=== PATIENT | female | born 1995 | race Caucasian/White ===

== ENCOUNTER 2023-09-15 10:03 | Inpatient (IN) | payer BC, SELFPAY ==
[2023-09-15 10:19] VITALS: BP 131/87; PULSE 182; TEMP 37.4
--- NOTE | 2023-09-15 10:19 | ED.C_ITS ---
HPI - Psych General: Chief Complaint: Psychiatric Symptoms Stated Complaint: AILIN HORN Time Seen by Provider: 09/15/23 10:07 Source: patient Mode of arrival: ambulatory History of Present Illness: 27-year-old female who presents to the emergency room for mental health evaluation. She tells me that she is homicidal but she cannot really name any when she wants to hurt. She denies being suicidal. She is extremely anxious she was supposed to be at particular for inpatient rehab its been 4 days since she has done any methamphetamines. Shortly after arrival here she attempted to elope and mated to the CT hallway and went into the orthopedic closet. Patient was escorted back to her room by myself and Av Kim. We tried to de- escalate she continued to be aggravated there was a lot of equipment immediately available within reach in the orthopedic closet so she was physically escorted back to her room to prevent injury to herself or others. complaint: suicidal ideation and feels depressed Duration: intermittent Relieving factors: none Associated psychiatric symptoms: suicidal ideation, homicidal ideation and racing thoughts Treatments prior to arrival: none Review of Systems Const: Denies: fever(s) or chills Card: Denies: chest pain Resp: Denies: dyspnea GI: Denies: abdominal pain : Denies: dysuria, urinary frequency or urinary urgency Musc: Denies: neck pain or back pain Skin/Breast: Denies: rash Physical Exam Const: GENERAL APPEARANCE: cooperative and comfortable ORIENTATION/CONSCIOU SNESS: Yes awake HENMT: COMMON NORMALS: normocephalic, atraumatic and hearing grossly normal bilaterally HEAD & SCALP: normocephalic and atraumatic Resp: COMMON NORMALS: normal respiratory effort, No retractions, No use of accessory muscles and clear to auscultation bilaterally AUSCULTATION: clear to auscultation bilaterally Cardio: COMMON NORMALS: regular rate, regular rhythm and No murmurs present (Cardio) RATE: regular rate RHYTHM: regular rhythm GI: COMMON NORMALS: Soft to palpation and No hepatosplenomegaly present AUSCULTATION: Yes normoactive bowel sounds PALPATION: Yes Soft to palpation, No Tenderness to palpation present (GI), No Guarding due to palpation present (GI) and Yes No hepatosplenomegaly present Extremity: COMMON NORMALS: normal to inspection, capillary refill normal, no clubbing, cyanosis or edema, no calf tenderness and no pedal edema Skin: COMMON NORMALS: no rashes or lesions noted GENERAL SKIN EXAM: no rashes or lesions noted Course Vital Signs: Vital signs: Vital Signs Temperature 99.4 F 09/15/23 10:19 Pulse Rate 136 H 09/15/23 13:00 Respiratory Rate 16 09/15/23 13:00 Blood Pressure 130/86 09/15/23 13:00 Pulse Oximetry 98 09/15/23 13:00 Oxygen Delivery Me thod Room Air 09/15/23 13:00 MDM - Psych Medical Decision Making Mild acute psychosis from her history of methamphetamine use. She is having some delusions and slight paranoid psychosis she is concerned is going to get worse and she is can hurt herself or someone else discussed Dr. Llamas will admit. Orders written Medical Records I reviewed the patient's medical records. Lab Data I reviewed the patient's lab results. 09/15/23 10:42 09/15/23 10:42 Laboratory Results WBC 10.54 10^3/uL (3.29-11.43) 09/15/23 10:42 RBC 5.04 10^6/uL (3.85-5.65) 09/15/23 10:42 Hgb 15.10 g/dL (11.27-16.99) 09/15/23 10:42 Hct 47.6 % (36-47) H 09/15/23 10:42 MCV 94.4 fl (85-98) 09/15/23 10:42 MCH 30.0 pg (27-33) 09/15/23 10:42 MCHC 31.7 g/dL (30-55) 09/15/23 10:42 RDW 12.8 % (12.1-15.1) 09/15/23 10:42 Plt Count 293 10^3/cmm (157-399) 09/15/23 10:42 MPV 10.7 fL (7.4-10.4) H 09/15/23 10:42 Neut % (Auto) 77.5 % 09/15/23 10:42 Lymph % (Auto) 13.2 % 09/15/23 10:42 Wilcox % (Auto) 8.3 % 09/15/23 10:42 Eos % (Auto) 0.2 % 09/15/23 10:42 Baso % (Auto) 0.5 % 09/15/23 10:42 Neut # (Auto) 8.18 10^3/uL (1.8-7.7) H 09/15/23 10:42 Lymph # (Auto) 1.4 10^3/uL (0.8-4.8) 09/15/23 10:42 Wilcox # (Auto) 0.9 10^3/uL (0.2-0.9) 09/15/23 10:42 Eos # (Auto) 0.0 10^3/uL (0.0-0.8) 09/15/23 10:42 Baso # (Auto) 0.1 10^3/uL (0.0-0.1) 09/15/23 10:42 Nucleated RBC % (auto) 0 % 09/15/23 10:42 Nucleated RBCs # 0.0 /100WBC 09/15/23 10:42 Sodium 137 mmol/L (136-145) 09/15/23 10:42 Potassium 4.2 mmol/L (3.5-5.1) 09/15/23 10:42 Chloride 102 mmol/L (98-107) 09/15/23 10:42 Carbon Dioxide 18 mmol/L (22-29) L 09/15/23 10:42 Anion Gap 21.2 (5-19) H 09/15/23 10:42 BUN 10 mg/dL (6-20) 09/15/23 10:42 Creatinine 0.9 mg/dL (0.5-0.9) 09/15/23 10:42 GFR Calculation 74.6 mL/min (90-130) L 09/15/23 10:42 Glucose 127 mg/dL (65-115) H 09/15/23 10:42 Calculated Osmolality 285 mOsm/kg (285-295) 09/15/23 10:42 Calcium 10.1 mg/dL (8.5-10.5) 09/15/23 10:42 Total Bilirubin 1.0 mg/dL (0.15-1.2) 09/15/23 10:42 AST 18 U/L (0-32) 09/15/23 10:42 ALT 21 U/L (0-33) 09/15/23 10:42 Alkaline Phosphatase 98 U/L (35-105) 09/15/23 10:42 Total Protein 8.0 g/dL (6.6-8.7) 09/15/23 10:42 Albumin 4.6 g/dL (3.5-5.2) 09/15/23 10:42 Globulin 3.4 g/dL (1.3-4.6) 09/15/23 10:42 HCG, Qual Negative (Negative) 09/15/23 10:42 Salicylates < 0.3 mg/dL (3-10) L 09/15/23 10:42 Acetaminophen < 5.0 ug/mL (10-30) L 09/15/23 10:42 No radiology studies performed this visit Discharge Plan Discharge Patient Disposition: Admitted As Inpatient Admit Provider: Deric Parada Clinical Impression: Acute psychosis, Drug-induced psychotic disorder, Homicidal ideations Condition: Stable Coding Level of Care Code ED Water Hauler for Chrissy Dang
[2023-09-15] MEDS: LORazepam 2 mg Tablet PO ×2 (10:30→20:16)
[2023-09-15 10:49] LABS: Basophils # 0.1 10^3/uL (0.0-0.1); Basophils % 0.5 %; Eosinophils % 0.2 %; Hematocrit 47.6 % (36-47); Lymphocytes # 1.4 10^3/uL (0.8-4.8); Lymphocytes % 13.2 %; Mean Corpuscular HGB Conc 31.7 g/dL (30-55); Mean Corpuscular Volume 94.4 fl (85-98); Mean Platelet Volume 10.7 fL (7.4-10.4); Monocytes # 0.9 10^3/uL (0.2-0.9); Monocytes % 8.3 %; Neutrophils # 8.18 10^3/uL (1.8-7.7); Neutrophils % 77.5 %; Nucleated Red Blood Cells % 0 %; Platelet Count 293 10^3/cmm (157-399); Red Blood Count 5.04 10^6/uL (3.85-5.65); Red Cell Distribution Width 12.8 % (12.1-15.1); White Blood Count 10.54 10^3/uL (3.29-11.43)
[2023-09-15 11:04] LABS: HCG, Serum Qual Negative (Negative)
[2023-09-15 11:07] LABS: Alanine Aminotransferase 21 U/L (0-33); Albumin Level 4.6 g/dL (3.5-5.2); Alkaline Phosphatase 98 U/L (35-105); Anion Gap 21.2 (5-19); Aspartate Amino Transferase 18 U/L (0-32); Blood Urea Nitrogen 10 mg/dL (6-20); Calcium 10.1 mg/dL (8.5-10.5); Carbon Dioxide 18 mmol/L (22-29); Chloride 102 mmol/L (98-107); Globulin 3.4 g/dL (1.3-4.6); Glomerular Filtration Rate 74.6 mL/min (90-130); Glucose 127 mg/dL (65-115); Osmolality Calculated 285 mOsm/kg (285-295); Potassium 4.2 mmol/L (3.5-5.1); Sodium 137 mmol/L (136-145)
[2023-09-15 11:11] LABS: Acetaminophen < 5.0 ug/mL (10-30); Salicylate < 0.3 mg/dL (3-10)
[2023-09-15 12:50] VITALS: BP 130/86; PULSE 136; RESP 16; O2SAT 97
[2023-09-15 13:00] VITALS: BP 130/86; PULSE 136; RESP 16; O2SAT 98
--- NOTE | 2023-09-15 13:33 | PC.NURSE ---
updated NPU to please notify Haylee Ayala at [facility] if patient leaves NPU
[2023-09-15 14:00] VITALS: BP 118/72; PULSE 82; RESP 18; TEMP 36.8; O2SAT 97
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
[2023-09-15] MEDS: haloperidol 5 mg Tablet PO (20:16)
--- NOTE | 2023-09-15 20:28 | PC.NURSE ---
Patient has reportedly asked for her clothing and to leave the facility. Patient stating that her boyfriend has been outside for 2 hours waiting on her. It has bee explained to patient by multiple staff that she needs to speak with the Doctor in the morning about being discharged. Patient stated that she was only here to get through her anxiety attack and get medication and she is better now. Patient continued to check doors and go into other patients rooms. Patient has attempted to open the windows in both her room and the day room and attempted to have another patient break the glass.Patient has been redirected multiple times by multiple staff members. Patient continuously going into her room and closing the door. This tech has had to open the patients door and explain that the door needs to remain open. Patient proceeded to state that she is 27 years old and that she has a right to her own privacy. This tech explained to patient again that she was in the stress unit and that the doors needed to remain open. Patient proceeded to escalate and hollering that she needs to leave and that her boyfriend is the only one that can calm her down. Patient then stated You dont want to make me snap and came towards this tech in a threatening and violent manner. Patient then stated You need to let me out or I am going to start killing people in here At this time security and the warehouse distribution specialist was called. Patient was given Haldol and Ativan PO. Patient continues to hover by the exit doors.
[2023-09-15 20:49] VITALS: BP 116/88; PULSE 121; RESP 18; TEMP 36.8; O2SAT 97
[2023-09-15 21:05] LABS: Amphetamines Screen Urine Positive (Negative); Barbiturates Screen Urine Negative (Negative); Benzodiazepines Screen Urine Positive (Negative); Cocaine Screen Urine Negative (Negative); Opiate Screen Urine Negative (Negative); PCP Screen Urine Negative (Negative); THC Screen Urine Negative (Negative)
--- NOTE | 2023-09-15 21:42 | PC.NURSE ---
PT CONTINUES TO ESCALATE DUE TO WANTING TO LEAVE FACILTY. PT WAS EDUCATED SHE WOULD NEED TO SEE THE DR. PT HAS BEEN OBSERVED GOING INTO OTHERS ROOMS, TRYING TO POP THE LOCK ON THE DOORS WITH PENS. PEN REMOVED FROM PT. PT IS DELUSIONAL. STATES HER BOYFRIEND HAS BEEN HERE WAITING FOR HER FOR 3 DAYS BUT PT HAS ONLY BEEN HERE A FEW HOURS. PT WILL NOT COMPLETE ASSESSMENTS, ONLY DEMANDS HER CLOTHING SO SHE CAN GO. PT STATES I'M LOOKING FOR A LITTLE BOY, DON'T YOU SEE HIM. PT WAS REDIRECTED MULTIPLE TIMES. PT BECAME EXTREMELY AGITATED YELLING AT STAFF, STATING I AM GOING TO KILL YOU ALL, LET ME GO. PT WAS NOT ABLE TO BE REDIRECTED BY STAFF. MEDICATIONS OFFERED AND REFUSED. PT CONTINUED GOING INTO ROOM AND TRYING TO OPEN DOORS. AT 1999, AND SECURITY WAS CALLED FOR STANDBY ALONG WITH SENIOR TECHNICAL SUPPORT ENGINEER TO ADMINISTER INJECTIONS. ONCE THEY ARRIVED PT SAID SHE WAS CALM AND DID NOT WANT TO TAKE A SHOT. SHE DID AGREE TO TAKE ATIVAN 2 MG AND HALDOL 5 MG PO. RN MADE SURE PT TOOK MEDICATIONS APPEARED PT DID. NEW ORDERS WERE RECEIVED FOR ATIVAN 2 MG PO Q 4 HOURS PRN AGITATION AND BENADRYL 50 MG PO Q 4 AGITATION. PT DID NOT TAKE THE BENADRYL THAT WAS OFFERED. AT 2129 PT CONTINUES TO CHECK DOORS, GO INTO ROOMS, CHARGE AT DOORS AND NOT ABLE TO BE REDIRECTED. PT REQUIRES CONSTANT SUPERVISON BY STAFF. DR. GREY WAS NOTIFIED NEW ORDERS RECEIVED FOR ONE ON ONE SITTER TO ENSURE PT SAFETY. ORDERS PLACED. PT CURRENTLY SITTING ON BENCH STARRING AT STAFF. SUPPORT WAS VOICED.
[2023-09-15] MEDS: OLANZapine 5 mg ODT PO (22:10)
--- NOTE | 2023-09-15 22:23 | PC.NURSE ---
DR. GREY CONTACTED ABOUT PTS ONGOING BEHAVIORS. NEW ORDERS RECEIVED GIVE GEODON 20 MG IM NOW IF PT DECLINES ZYDIS 5 MG PRN FOR AGITATION. PT WAS APPROACHED AFTER TRYING TO OPEN THE DOOR TO THE COURT YARD AGAIN AND PT WAS GIVEN THE CHOICE TO TAKE GEODON 20 MG IM, OR ZYDIS 5 MG ORDERED. PT AGREED TO TAKE ZYDIS 5 MG, THIS RN STAYED WITH PT UNTIL PILL DISSOLVED IN MOUTH. PT DID ATTEMPT TO TAKE IT OUT THEN REQUESTED A DRINK. PT WAS EDUCATED THE ZYDIS NEEDED TO STAY IN HER MOUTH FOR 2-3 MINUTES UNTIL DISSOLVED THEN PT COULD HAVE A DRINK. PT COMPLIED, DECLINED ICE WATER AND WENT TO THE FAUCET AND DRANK OUT OF IT. SUPPORT VOICED.
[2023-09-16] MEDS: ziprasidone 20 mg/mL SDV IM (00:45)
--- NOTE | 2023-09-16 01:15 | PC.NURSE ---
PT CONTINUES TO REST WITH SITTER AT SIDE. VITAL SIGNS OBTAINED AND ARE FOLLOWS. BP 89/54, RR 18, TEMP 98.4, HR 104 AND 98%ON RA. NO DISTRESS NOTED AT THIS TIME.
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
--- NOTE | 2023-09-16 03:17 | PC.NURSE ---
HEALTH CARE TECHNICIAN AND RN INTO ROOM TO COMPLETE SET OF VITALS. PT WOKE UP AND REFUSED TO HAVE HER VITALS TAKEN. RN ATTEMPTED TO EDUCATED PT THAT HER PREVIOUS BLOOD PRESSURE WAS A LITTLE LOW AND WE NEEDED TO RETAKE HER VITAL SIGNS. PT BEGAN TO GET AGITATED AND CONTINUED TO DECLINE. HEALTH CARE TECHNICIAN COVERED UP PT DUE TO PT STATING SHE WAS COLD AND RN AND HEALTH CARE TECHNICIAN LEFT ROOM. SITTER REMAINS AT BED SIDE ORDERED. WILL ATTEMPT TO TAKE VITALS AGAIN PRIOR TO SHIFT CHANGE THIS AM.
[2023-09-16 06:00] VITALS: RESP 18
--- NOTE | 2023-09-16 06:48 | PC.NURSE ---
ORDERS RECEIVED TO DISCONTINUE ONE ON ONE SITTER. PT CONTINUES TO SLEEP. RESPIRATIONS EVEN AND UNLABORED AT 18 BPM. STAFF ATTEMPTED TO DO 600 AM VITALS, PT PULLS ARMS AWAY SAYING NO, I'M SLEEPING, RESEARCH AND EVALUATION MANAGER INFORMED TO LET HER SLEEP AND RN WILL PASS ON IN REPORT TO RETAKE VITALS SOON PT ALLOWS. ORDERS PLACED FOR SITTER TO BE REMOVE.
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
--- NOTE | 2023-09-16 11:26 | PC.OT ---
MULTIPLE ATTEMPTS MADE FOR OT EVALUATION 09/16/2023; WILL ATTEMPT AT LATER DATE.
[2023-09-16 14:00] VITALS: RESP 16
[2023-09-17 06:00] VITALS: RESP 16
[2023-09-17 14:00] VITALS: BP 106/70; PULSE 107; RESP 17; TEMP 37; O2SAT 96
--- NOTE | 2023-09-17 14:41 | W.PM.NPUPNS ---
Subjective NPU Subjective: 27-year-old white female with methamphetamine dependence admitted with bizarre behavior and complaints of auditory hallucinations. Patient had endorsed a past history of germán. She had reported confusion and reported that she did not have much recollection as to how she had come to be in the hospital. She had reported some improved sleep. She had stated that she had been on Wellbutrin for her depression but acknowledged a past history of having some mood swings. She had stated that she had some particular legal troubles but was living in [place] before. She reports that she needed to complete her drug treatment and [facility] otherwise she would go to long-term. Mental Status Exam MSE Comments: She is a thin white female who appeared her stated age who was lying in bed with poor hygiene and appeared in moderate distress. Her speech was monotone in quality and normal in volume with continue speech latency. She was unable to describe her mood. Her affect was odd and bizarre. She clearly appeared to be responding to internal stimuli. She had denied any homicidal ideation or suicidal ideation. Her attention span was impaired. She was alert and oriented to person, year but not place. Her insight is impaired. Her judgment is poor. Her impulse control appeared impaired. Vitals/I&O/Wt Last Vital Signs Temp 98.3 F 09/15/23 20:49 Pulse 121 H 09/15/23 20:49 Resp 16 09/17/23 06:00 BP 116/88 09/15/23 20:49 Pulse Ox 97 09/15/23 20:49 O2 Del Method Room Air 09/15/23 20:49 Data NPU 09/15/23 10:42 09/15/23 10:42 A&P Assessment and plan (1) Acute psychosis: (2) Drug-induced psychotic disorder: (3) Homicidal ideations: Plan Is a 27-year-old white female recent use of methamphetamine with likely psychosis secondary to its use. The patient will continue to require inpatient hospitalization as she appears unable to care for herself at this time. 1. Encourage individual, group and milieu therapy. 2. Recommend sober living treatment at the highest level of care to which the patient is willing to commit. 3. Continue q-15 minute checks for safety.? 4.?Continue olanzapine 5mg at night, continue Wellbutrin xl 150mg in am 5.? Will attempt to gather collateral information. Involuntary Hold Information 96 Hour Hold: 96 Hour Involuntary Admission: No Attestations NPU Medical Necessity Statement*: Inpatient hospitalization is medically necessary and deemed to ?be ?the clinically appropriate intervention ?at this time.? We will monitor/initiate medications and make changes as indicated.? The patient will be in the hospital for over 2 midnights.? The patient?s likely length of stay 1-2 days. Coding Level of Care Code Acute Code for [facility] Fwd Diagnoses Acute psychosis F23 Drug-induced psychotic disorder F19.959 Homicidal ideations R45.850
[2023-09-17 20:19] VITALS: BP 102/65; PULSE 76; RESP 16; TEMP 36.6; O2SAT 98
[2023-09-17] MEDS: OLANZapine 5 mg TABLET PO (20:24)
[2023-09-18] MEDS: buPROPion XL (24 HR) 150 mg Tablet PO (08:46)
[2023-09-18 14:00] VITALS: BP 115/76; PULSE 87; RESP 16; TEMP 36.6; O2SAT 99
--- NOTE | 2023-09-18 16:55 | P.NPUPN_ITS ---
Subjective NPU Subjective: 27-year-old white female with methamphetamine dependence admitted with bizarre behavior and complaints of auditory hallucinations. patient had reported feeling better. She had continued to appear distracted by her thoughts. She had eaten and had remained isolative on the milieu. She had met with a staff member at the [facility] today. She continued to struggle with being able to identify or provide information regarding her past 7 to 10 days just prior to her hospitalization here. She had provided information yesterday suggesting that she had been diagnosed with bipolar disorder and when the aligner typewriter of this note had brought that up she appeared surprised that the aligner typewriter had known this information. The patient when asked as to whether she felt ready to go directly to [facility] today she had paused for several seconds and was unable to answer this question and eventually stated that she would need to think about it. Mental Status Exam MSE Comments: She is a thin white female who appeared her stated age who was seen on the [facility] with improved hygiene and steady gait. Her speech was monotone in quality and decrease in volume and significant periods of increased latency. She described her mood as okay. Her affect Appeared odd and subdued. She continued to to be responding to internal stimuli although she denied any auditory or visual hallucinations. She had denied any homicidal ideation or suicidal ideation. Her attention span was impaired. She was alert and oriented to person, place, year and month but not day of the week or date. Her insight is impaired. Her judgment is poor. Her impulse control appeared impaired. Vitals/I&O/Wt Last Vital Signs Temp 97.9 F 09/18/23 14:00 Pulse 87 09/18/23 14:00 Resp 16 09/18/23 14:00 BP 115/76 09/18/23 14:00 Pulse Ox 99 09/18/23 14:00 O2 Del Method Room Air 09/17/23 20:19 Data NPU 09/15/23 10:42 09/15/23 10:42 A&P Assessment and plan (1) Acute psychosis: (2) Drug-induced psychotic disorder: (3) Homicidal ideations: (4) Bipolar disorder, unspecified: Plan Is a 27-year-old white female recent use of methamphetamine with likely psychosis secondary to its use. The patient will continue to require inpatient hospitalization as she appears unable to care for herself at this time. 1. Encourage individual, group and milieu therapy. 2. Recommend sober living treatment at the highest level of care to which the patient is willing to commit. 3. Continue q-15 minute checks for safety.? 4.?Increase olanzapine 7.5mg at night. continue Wellbutrin xl 150mg in am 5.? Will attempt to gather collateral information. Involuntary Hold Information 96 Hour Hold: 96 Hour Involuntary Admission: No Attestations NPU Medical Necessity Statement*: Inpatient hospitalization is medically necessary and deemed to ?be ?the clin ically appropriate intervention ?at this time.? We will monitor/initiate medications and make changes as indicated.?? The patient?s likely length of stay 3-5 days. Coding Level of Care Code Acute Code for [facility] Fwd Diagnoses Acute psychosis F23 Drug-induced psychotic disorder F19.959 Homicidal ideations R45.850 Bipolar disorder, unspecified F31.9
[2023-09-18 20:03] VITALS: BP 119/86; PULSE 95; RESP 17; TEMP 37.1; O2SAT 98
[2023-09-18] MEDS: OLANZapine 5 mg ODT PO (20:12)
[2023-09-18] MEDS: OLANZapine 5 mg TABLET 7.5 MG PO (20:13)
--- NOTE | 2023-09-19 06:38 | PC.NURSE ---
pt ref vs resp18
[2023-09-19] MEDS: buPROPion XL (24 HR) 150 mg Tablet PO (08:15)
--- NOTE | 2023-09-19 12:36 | W.PM.NPUPNS ---
Subjective NPU Subjective: 27-year-old white female with methamphetamine dependence admitted with bizarre behavior and complaints of auditory hallucinations. The patient was isolative on the [facility]. She reported that she did not feel that her thoughts were racing. She states that she had been feeling better. She remains somewhat uncertain about the specifics of what medication she had been on. She had admitted to having used methamphetamine approximately 1 week ago. There was no wandering noted. There was no problems with excess confusion. She was eating well and appeared less distracted by her thoughts. She had stated that she was willing to return to [facility] once stabilized. She reports improved sleep. Mental Status Exam MSE Comments: She is a thin white female who appeared her stated age who was seen on the [facility] with improved hygiene and steady gait. Her speech was monotone in quality and decrease in volume with significant periods of increased latency. She described her mood as okay. Her affect remained flat. She did not appear to be responding to internal stimuli today. She had denied any homicidal ideation or suicidal ideation. Her attention span was better. She was alert and oriented to person, place, and time today. Her insight appeared to be improving. Her judgment is poor. Her impulse control appeared impaired. Vitals/I&O/Wt Last Vital Signs Temp 98.7 F 09/18/23 20:03 Pulse 95 09/18/23 20:03 Resp 17 09/18/23 20:03 BP 119/86 09/18/23 20:03 Pulse Ox 98 09/18/23 20:03 O2 Del Method Room Air 09/18/23 20:03 Data NPU 09/15/23 10:42 09/15/23 10:42 A&P Assessment and plan (1) Acute psychosis: (2) Drug-induced psychotic disorder: (3) Homicidal ideations: (4) Bipolar disorder, unspecified: Plan Is a 27-year-old white female recent use of methamphetamine with likely psychosis secondary to its use. The patient will continue to require inpatient hospitalization with transfer back to [facility] in 2-3 days. 1. Encourage individual, group and milieu therapy. 2. Recommend sober living treatment at the highest level of care to which the patient is willing to commit. 3. Continue q-15 minute checks for safety.? 4.?Continue olanzapine 7.5mg at night. continue Wellbutrin xl 150mg in am 5.? Will attempt to gather collateral information. Involuntary Hold Information 96 Hour Hold: 96 Hour Involuntary Admission: No Attestations NPU Medical Necessity Statement*: Inpatient hospitalization is medically necessary and deemed to ?be ?the clinically appropriate intervention ?at this time.? We will monitor/initiate medications and make changes as indicated.?? The patient?s likely length of stay 3-5 days. Coding Level of Care Code Acute Code for [facility] Fwd Diagnoses Acute psychosis F23 Drug-induced psychotic disorder F19.959 Homicidal ideations R45.850 Bipolar disorder, unspecified F31.9
[2023-09-19 14:00] VITALS: BP 116/67; PULSE 120; RESP 16; TEMP 37.1; O2SAT 97
[2023-09-19] MEDS: OLANZapine 5 mg TABLET 7.5 MG PO (20:07)
[2023-09-19 22:00] VITALS: BP 104/74; PULSE 102; RESP 18; TEMP 36.4; O2SAT 98
[2023-09-20 06:00] VITALS: BP 89/59; PULSE 95; RESP 16; O2SAT 96
[2023-09-20] MEDS: buPROPion XL (24 HR) 150 mg Tablet PO (08:32)
[2023-09-20 14:00] VITALS: BP 105/70; PULSE 82; RESP 16; TEMP 36.6; O2SAT 100
--- NOTE | 2023-09-20 14:37 | P.NPUPN_ITS ---
Subjective NPU Subjective: 27-year-old white female with methamphetamine dependence admitted with bizarre behavior and complaints of auditory hallucinations. The patient was isolative on the milieu. She had reported that she was feeling better. She denied any racing thoughts. She reported that she felt better about going to [facility] tomorrow. She had stated that she had slept better with the olanzapine but did not report feeling excessively tired. Patient did not appear to have any unusual behavior with no evidence of wandering noted on the unit. Mental Status Exam MSE Comments: She is a thin white female who appeared her stated age who was seen on the unit with improved hygiene and steady gait. Her speech was monotone in quality and decrease in volume with significant periods of increased latency. She described her mood as better Her affect remained restricted. She did not appear to be responding to internal stimuli today. She had denied any homicidal ideation or suicidal ideation. Her attention span was better. She was alert and oriented to person, place, and time today. Her insight appeared to be improving. Her judgment is poor. Her impulse control appeared to be improving. Vitals/I&O/Wt Last Vital Signs Temp 98 F 09/20/23 14:00 Pulse 82 09/20/23 14:00 Resp 16 09/20/23 14:00 BP 105/70 09/20/23 14:00 Pulse Ox 100 09/20/23 14:00 O2 Del Method Room Air 09/20/23 14:00 Weight last 48 hrs Weight 44.679 kg Data NPU 09/15/23 10:42 09/15/23 10:42 A&P Assessment and plan (1) Acute psychosis: (2) Drug-induced psychotic disorder: (3) Homicidal ideations: (4) Bipolar disorder, unspecified: Plan Is a 27-year-old white female recent use of methamphetamine with likely psychosis secondary to its use. The patient will continue to require inpatient hospitalization with transfer back to [facility] in 1-2 days. 1. Encourage individual, group and milieu therapy. 2. Recommend sober living treatment at the highest level of care to which the patient is willing to commit. 3. Continue q-15 minute checks for safety.? 4.?Continue olanzapine 7.5mg at night. continue Wellbutrin xl 150mg in am Involuntary Hold Information 96 Hour Hold: 96 Hour Involuntary Admission: No Attestations NPU Medical Necessity Statement*: Inpatient hospitalization is medically necessary and deemed to ?be ?the clinically appropriate intervention ?at this time.? We will monitor/initiate medications and make changes as indicated.?? The patient?s likely length of stay 1-2 days. Coding Level of Care Code Acute Code for [facility] Fwd Diagnoses Acute psychosis F23 Drug-induced psychotic disorder F19.959 Homicidal ideations R45.850 Bipolar disorder, unspecified F31.9
[2023-09-20] MEDS: OLANZapine 5 mg TABLET 7.5 MG PO (20:39)
[2023-09-20 22:00] VITALS: BP 110/71; PULSE 89; RESP 18; TEMP 37; O2SAT 98
[2023-09-21 06:00] VITALS: BP 105/72; PULSE 92; RESP 16; O2SAT 98
[2023-09-21] MEDS: buPROPion XL (24 HR) 150 mg Tablet PO (08:11)
--- NOTE | 2023-09-21 09:04 | PC.NURSE ---
PT IN BED RESTING AROUSES TO VOICE. DENIES PAIN. DENIES SI/HI AND AVH AT THIS TIME. PT REPORTS DEPRESSION /10 AND ANXIETY /. PT STATES SHE BELIEVES SHE IS DISCHARGING BACK TO [facility] TODAY AND STATES SHE FEELS READY. REPORTS LAST BM 09/20/23. PT CONTINUES TO WITHDRAW TO ROOM AND ISOLATES. FLAT AFFECT IS NOTED. ALL QUESTIONS ANSWERED AND SUPPORT WAS VOICED.
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
[2023-09-21 13:44] VITALS: BP 105/72; PULSE 92; RESP 16; TEMP 36.5; O2SAT 98
== END 2023-09-21 15:18 | disposition home or self-care (01) | DRG 897 ==
LOC: ER 10:30 → NP 12:13
PROVIDERS: Admitting Provider Psychiatry & Neurology Psychiatry; Emergency Provider Family Medicine; Visit Provider Psychiatry & Neurology Psychiatry
DX: F15.251 Other stimulant dependence with stimulant-induced psychotic disorder with hallucinations (principal); Z62.810 Personal history of physical and sexual abuse in childhood; Z62.811 Personal history of psychological abuse in childhood; Z81.1 Family history of alcohol abuse and dependence; R45.850 Homicidal ideations
CPT/HCPCS: 80053; 80306; 80307; 84703; 85025; 96372; 97150; 97165; 99285; J3486